=== PATIENT | male | born 1965 | race Two or more races ===

== ENCOUNTER → 2019-12-20 | Emergency (ER) | payer SELFPAY ==
[~2019-12-20] VITALS: Ht 170.2 cm; Wt 88.5 kg
[2019-12-20 22:16] LABS: Basophils # (auto) 0.1 10 ^3/uL (0-0.2); Eosinophils # (auto) 0.2 10 ^3/uL (0-0.8); Hemoglobin 10.4 g/dL (13.5-17.5); Lymphocytes # (auto) 2.5 10 ^3/uL (0.4-5.4); Monocytes # (auto) 0.9 10 ^3/uL (0-1.3)
[2019-12-20 22:17] LABS: Eosinophils % (auto) 3.3 % (0.0-7.0); Hematocrit 32.2 % (41.0-53.0); Lymphocytes % (auto) 37.4 % (10.0-50.0); Mean Corpuscular Hemoglobin 24.6 pg (28.0-32.0); Mean Corpuscular Hgb Conc. 32.4 g/dL (32.0-36.0); Mean Corpuscular Volume 75.9 fL (80.0-100.0); Monocytes % (auto) 13.4 % (0.0-12.0); Neutrophils % (auto) 44.9 % (37.0-80.0); Nucleated Red Blood Cells % 0.1 %; Platelet Count (auto) 279 10^3/uL (140-450); Red Blood Cells 4.24 10^6/uL (4.5-5.90); White Blood Cell 6.6 10^3/uL (4.4-10.8)
[2019-12-20 22:18] LABS: Red Cell Distribution Width 20.2 % (11.8-14.3)
[2019-12-20 22:33] LABS: INR 1.01 (0.9-1.15); Partial Thromboplastin Time 24.7 sec (23.64-32.05)
[2019-12-20 22:35] LABS: Albumin 3.7 g/dL (3.4-5.0); Anion Gap 9 (5-15); Blood Urea Nitrogen 22 mg/dL (7-18); Calcium 9.1 mg/dL (8.5-10.1); Carbon Dioxide 27 mmol/L (21-32); Chloride 104 mmol/L (98-107); Glucose 90 mg/dL (74-106); Magnesium 2.4 mg/dL (1.6-2.6); Potassium 3.9 mmol/L (3.5-5.1); Sodium 140 mmol/L (136-145)
[2019-12-20 22:41] LABS: Alanine Aminotransferase 41 U/L (16-61); Alkaline Phosphatase 88 U/L (45-117); Aspartate Aminotransferase 45 U/L (15-37); BUN/Creatinine Ratio 19.1; Bilirubin, Total 0.3 mg/dL (0.2-1.0); GFR African American 86 mL/min; GFR Non-African American 71 mL/min; Total Protein 7.6 g/dL (6.4-8.2)
[2019-12-20 23:00] VITALS: BP 115/72
[2019-12-20 23:07] LABS: Urine Amorphous Crystal FEW /hpf (None Seen); Urine Bacteria NONE SEEN /hpf (None Seen); Urine Blood Negative /uL (Negative); Urine WBC 1 /hpf (0 - 3)
== END | disposition home or self-care (01) ==
LOC: ER 21:09
DX: K64.4 Residual hemorrhoidal skin tags (principal)
CPT/HCPCS: 36415; 71046; 74176; 80053; 81001; 83735; 83880; 84484; 85025; 85610; 85730; 93005

== ENCOUNTER 2021-05-20 11:22 | Emergency (ER) | payer BC, OTHER ==
[~2021-05-20] VITALS: Ht 170.2 cm; Wt 86.2 kg
[2021-05-20 11:32] VITALS: BP 137/87
[2021-05-20 11:57] LABS: Basophils # (auto) 0.1 10 ^3/uL (0-0.2); Basophils % (auto) 1.8 % (0.0-2.0); Eosinophils # (auto) 0.1 10 ^3/uL (0-0.8); Eosinophils % (auto) 1.6 % (0.0-7.0); Hematocrit 30.3 % (41.0-53.0); Lymphocytes # (auto) 1.8 10 ^3/uL (0.4-5.4); Lymphocytes % (auto) 36.5 % (10.0-50.0); Mean Corpuscular Hemoglobin 27.2 pg (28.0-32.0); Mean Corpuscular Hgb Conc. 32.9 g/dL (32.0-36.0); Mean Corpuscular Volume 82.8 fL (80.0-100.0); Monocytes # (auto) 0.5 10 ^3/uL (0-1.3); Monocytes % (auto) 10.3 % (0.0-12.0); Neutrophils # (auto) 2.4 10 ^3/uL (1.6-8.6); Neutrophils % (auto) 49.8 % (37.0-80.0); Nucleated Red Blood Cells % 0.3 %; Red Blood Cells 3.66 10^6/uL (4.5-5.90); Red Cell Distribution Width 16.1 % (11.8-14.3); White Blood Cell 4.9 10^3/uL (4.4-10.8)
[2021-05-20 12:17] LABS: Albumin 3.4 g/dL (3.4-5.0); Anion Gap 6 (5-15); Blood Urea Nitrogen 8 mg/dL (7-18); Calcium 8.2 mg/dL (8.5-10.1); Carbon Dioxide 28 mmol/L (21-32); Chloride 111 mmol/L (98-107); Glucose 142 mg/dL (74-106); Potassium 3.4 mmol/L (3.5-5.1); Sodium 145 mmol/L (136-145)
[2021-05-20 12:23] LABS: Alanine Aminotransferase 74 U/L (16-61); Alkaline Phosphatase 85 U/L (45-117); Aspartate Aminotransferase 41 U/L (15-37); BUN/Creatinine Ratio 7.6; Bilirubin, Total 0.3 mg/dL (0.2-1.0); GFR African American 95 mL/min; GFR Non-African American 78 mL/min; Total Protein 7.2 g/dL (6.4-8.2)
== END 2021-05-20 20:37 | disposition left against medical advice (07) ==
LOC: ER 11:22
DX: M54.10 Radiculopathy, site unspecified (principal); F20.9 Schizophrenia, unspecified; R51.9 Headache, unspecified
CPT/HCPCS: 36415; 70450; 72125; 80053; 84484; 85025

== ENCOUNTER 2021-12-03 07:03 | Emergency (ER) | payer OTHER ==
[~2021-12-03] VITALS: Ht 167.6 cm; Wt 78.6 kg
[2021-12-03 07:52] LABS: Basophils # (auto) 0.1 10 ^3/uL (0-0.2); Eosinophils % (auto) 0.6 % (0.0-7.0); Lymphocytes # (auto) 1.4 10 ^3/uL (0.4-5.4)
[2021-12-03 07:54] LABS: Basophils % (auto) 1.3 % (0.0-2.0); Eosinophils # (auto) 0.1 10 ^3/uL (0-0.8); Hematocrit 31.9 % (41.0-53.0); Hemoglobin 9.7 g/dL (13.5-17.5); Lymphocytes % (auto) 16.7 % (10.0-50.0); Mean Corpuscular Hemoglobin 20.7 pg (28.0-32.0); Mean Corpuscular Hgb Conc. 30.5 g/dL (32.0-36.0); Mean Corpuscular Volume 67.8 fL (80.0-100.0); Monocytes % (auto) 11.2 % (0.0-12.0); Neutrophils # (auto) 5.9 10 ^3/uL (1.6-8.6); Neutrophils % (auto) 70.2 % (37.0-80.0); Nucleated Red Blood Cells % 0.2 %; Red Blood Cells 4.71 10^6/uL (4.5-5.90); White Blood Cell 8.5 10^3/uL (4.4-10.8)
[2021-12-03 08:06] LABS: Albumin 4.1 g/dL (3.4-5.0); Calcium 8.9 mg/dL (8.5-10.1); Potassium 3.4 mmol/L (3.5-5.1)
[2021-12-03 08:13] LABS: BUN/Creatinine Ratio 11.5; Bilirubin, Total 0.4 mg/dL (0.2-1.0); Total Protein 8.2 g/dL (6.4-8.2)
[2021-12-03 08:17] LABS: Red Cell Distribution Width 23.8 % (11.8-14.3)
[2021-12-03] MEDS ORDERED: IOHEXOL 350 MG/ML 100ML IJ ONE (08:37)
[2021-12-03 10:07] LABS: Urine Bacteria FEW /hpf (None Seen); Urine Blood Negative /uL (Negative); Urine Mucus FEW (None Seen); Urine Specific Gravity 1.037 (1.001-1.035); Urine WBC 1 /hpf (0 - 3)
[2021-12-03 12:46] VITALS: BP 141/93
== END 2021-12-03 14:05 | disposition left against medical advice (07) ==
LOC: ER 07:03
DX: I27.82 Chronic pulmonary embolism (principal); R07.89 Other chest pain
CPT/HCPCS: 36415; 71275; 80053; 81001; 84484; 85025; 93005; 99285; Q9967